=== PATIENT | female | born 1960 | race Caucasian/White ===

== ENCOUNTER 2025-03-23 12:42 | Emergency (ER) | payer MEDICARE, MEDICAID ==
[~2025-03-23] VITALS: Ht 149.9 cm; Wt 46.0 kg
[2025-03-23 12:50] VITALS: BP 124/70; PULSE 83; RESP 18; O2SAT 98
--- NOTE | 2025-03-23 14:31 | RADIOLOGY REPORT ---
EXAM: DI TOE(S) CLINICAL INDICATION: toe pain TECHNIQUE: DI TOE(S) Comparison: None FINDINGS/IMPRESSION: Possible fracture of the base of the 2nd middle phalanx. Amputation 3rd proximal phalanx.
--- NOTE | 2025-03-23 15:18 | Physician Documentation ---
History of Present Illness ~ Chief Complaint: Foot pain Stated Complaint: SWOLLEN TOE Time Seen by MD: 14:24 Primary Medical Doctor: nancy PHILLIPS 65-year-old female that presents to the emergency department for evaluation of her right foot 2nd digit. She reports that she has had a wound on that foot the continues to worsen over the last week. Also reports that she has a broken pelvis as she was seen at another hospital for approximately a week ago and sent to a rehab facility for treatment and physical therapy. Patient reports her pain is significant in her right foot and that her pelvis pain has increased from the initial injury. Patient reports that she takes [place] and has taken them for years. She reports that they [place] is not covering her pain at this time. Tetanus witin 5 years: No Medication Reconciliation Allergies: Coded Allergies: No Known Allergies (Unverified , 03/23/25) Scheduled Cephalexin*Monohydrate* (Keflex*), 1 CAP PO QID Review of Systems ROS As stated above in the HPI, otherwise all systems are reviewed and negative. Physical Exam Vital Signs: Temperature: 98.5, Source: Temporal, Heart Rate: 83, Respiratory Rate: 18, BP: 124/70, Pulse Oximetry: 98, Weight: 46.000 Oxygen Flow Rate: 0 Physical Exam VITALS: Reviewed and as above. GENERAL: Alert, no apparent distress, sleepy HEENT: Normocephalic, atraumatic, PERRL, EOMI, dry mucosa, no erythema RESPIRATORY: Lungs clear, normal breath sounds, no respiratory distress. CHEST: No accessory muscle use, no retractions CV: Regular rate, rhythm, no edema, no murmur, No: JVD GI: Soft, non-tender, bowels sounds present, no rebound, guarding, or rigidity BACK: No CVA tenderness, or swelling MUSCULOSKELETAL No deformities, no edema. Pain to the right hip consistent with previous pelvic injury. SKIN: Warm and dry, no rash, to the 2nd digit of the right foot. NEURO: Oriented x4, No motor or sensory deficit PSYCH: Normal mood and affect, no agitation Progress Results/Orders Results/Orders Orders - LAWRENCE REESE GASTROENTEROLOGY NURSE PRACTITIONER Pelvis,Limited 1-2 Views (03/23/25 15:08) Vl Venous (03/23/25 16:10) Vl Arterial (03/23/25 16:10) Completed Orders - LAWRENCE REESE GASTROENTEROLOGY NURSE PRACTITIONER Cbc/Diff (03/23/25 15:06) CMP (03/23/25 15:06) LA (03/23/25 15:06) Pelvis,Limited 1-2 Views (03/23/25 15:08) Acetaminophen 325mg Tablet (Tylenol Tabl (03/23/25 15:20) Vl Venous (03/23/25 16:10) Vl Arterial (03/23/25 16:10) Medications Received in ER Medications (Trade) Dose Ordered Sig/Sharyn Route PRN Reason Start Time Stop Time Status Last Admin Dose Admin (Tylenol tablet) 650 mg ONCE ONCE PO 03/23/25 15:20 03/23/25 15:21 DC 03/23/25 16:00 650 MG Vital Signs 03/23/25 12:50 Temp 98.5 Pulse 83 Resp 18 B/P (MAP) 124/70 Pulse Ox 98 O2 Flow Rate 0 Laboratory Tests Test 03/23/25 15:48 03/23/25 16:17 Lactic Acid Level 1.0 White Blood Count 7.8 Red Blood Count 3.92 L Hemoglobin 9.2 L Hematocrit 29.6 L Mean Corpuscular Volume 75.5 L Mean Corpuscular Hemoglobin 23.4 L Mean Corpuscular Hemoglobin Concent 31.0 L Red Cell Distribution Width 24.0 H Platelet Count 284 Mean Platelet Volume 8.2 Neutrophils (%) (Auto) 70.5 Lymphocytes (%) (Auto) 18.5 L Monocytes (%) (Auto) 7.1 Eosinophils (%) (Auto) 3.2 Basophils (%) (Auto) 0.7 Neutrophils # (Auto) 5.5 Lymphocytes # (Auto) 1.5 Monocytes # (Auto) 0.6 Eosinophils # (Auto) 0.2 Basophils # (Auto) 0.1 CBC Comment Platelet Estimate Normal Red Blood Cell Morphology Perf Polychromasia Few Hypochromasia 1+ Basophilic Stippling Anisocytosis 3+ Microcytosis 1+ Tear Drop Cells 1+ Elliptocytes Few Schistocytes Few Sodium Level 132 L Potassium Level 3.3 L Chloride Level 101 Carbon Dioxide Level 22.3 L Anion Gap 9 Blood Urea Nitrogen 21 H Creatinine 0.69 Estimated GFR/1.73 m2 85 BUN/Creatinine Ratio 30.4 H Glucose Level 96 Calcium Level 8.4 L Total Bilirubin 0.2 Aspartate Amino Transf (AST/SGOT) 19 Alanine Aminotransferase (ALT/SGPT) 18 Alkaline Phosphatase 140 H Total Protein 6.8 Albumin 3.1 L Globulin 3.7 Albumin/Globulin Ratio 0.8 L Chemistry Comments Medical Decision Making Findings 1744: Patient reports that pain has improved. The Pt was found to have a closed, stable mildly displaced pelvic fracture on XR one week ago at another facility. Patient was discharged at that time to a rehabilitation facility. She presented from that facility today with a pain in her right foot secondary to wound on the 2nd digit and pain in her pelvis. The Pt is otherwise well appearing, hemodynamically stable, and shows no evidence of neurovascular injury or compartment syndrome. Patient underwent radiologic imaging end a full workup with diagnostic. Patient's pelvic fracture is stable. There is a suspicion that there may be a fracture to the 2nd digit of her right foot. The toe will be evangelina-taped and placed in a boot for stabilization. The patient will follow up with ortho and her PMD. Patient will return to the emergency department if there is any worsening of her current symptoms or any additional concerning symptoms that we discussed here today. This patient presents with initial presentation of local erythema this evening with a wound on the 2nd digit of her right foot. Negative for systemic concerns at this time as workup is negative for elevated white blood cell count. No lymphangitic spread visible and no fluid pockets or fluctuance concerning for abscess noted. Low concern for osteomyelitis or DVT. No immune compromise, bullae, pain out of proportion, or rapid progression concerning for necrotizing fasciitis. Patient to be discharged home with keflex with follow up with their PMD. General Diff Dx:Considerations: Include: Abrasion, Contusion, Fracture, Hematoma, Laceration, Malunion, Neurovascular injury, Open fracture, Sprain, Ulcer, Other Toe Diff Dx:Considerations: Include: Abrasion, Cellulitis, Contusion, Dislocati on, Felon, Fracture, Hematoma, Laceration, Neurovascular injury, Open fracture, Paronychia, Subungual hematoma, Other Departure Disposition: 01 HOME / SELF CARE / HOMELESS Impression: Primary Impression: Toe fracture, right Additional Impressions: Pelvic pain Open toe wound Additional Instructions: The Pt was found to have a closed, mildly displaced pelvic fracture on XR one w [place] ago at another facility. Patient was discharged at that time to a rehabilitation facility. She presented from that facility today with a pain in her right foot secondary to wound on the 2nd digit and pain in her pelvis. The Pt is otherwise well appearing, hemodynamically stable, and shows no evidence of neurovascular injury or compartment syndrome. Patient underwent radiologic imaging end a full workup with diagnostic. Patient's pelvic fracture is stable. There is a suspicion that there may be a fracture to the 2nd digit of her right foot. The toe will be evangelina-taped and placed in a boot for stabilization. The patient will follow up with ortho and her PMD. Patient will return to the emergency department if there is any worsening of her current symptoms or any additional concerning symptoms that we discussed here today. This patient presents with initial presentation of local erythema this evening with a wound on the 2nd digit of her right foot. Negative for systemic concerns at this time as workup is negative for elevated white blood cell count. No lymphangitic spread visible and no fluid pockets or fluctuance concerning for abscess noted. Low concern for osteomyelitis or DVT. No immune compromise, bullae, pain out of proportion, or rapid progression concerning for necrotizing fasciitis. Patient to be discharged home with keflex with follow up with their PMD. He states her antibiotics until your completed. He is follow up with your primary care provider. Return to the emergency department if you have any worsening with the symptoms or additional pain or any of the other concerning symptoms that we discussed here today. Patient understands and agrees with the discharge plan. Referrals: NO PRIMARY CARE PROVIDER (PCP) Prescriptions Hydrocodone Bit/Acetaminophen 5/325 MG ([place] 5/325 MG) 5 Mg/325 Mg Tablet 1 TAB PO Q6H PRN for pain, #14 TAB Prov: LAWRENCE REESE 03/23/25 Cephalexin*Monohydrate* (Keflex*) 500 Mg Capsule 1 CAP PO QID for 7 Days, #28 CAP Prov: LAWRENCE ERESE 03/23/25 Education Educated: Patient Educated regarding: diagnosis, treatment, need for follow up Signature Scribe Signature: A Attestation: Scribed for Lawrence Reese by BRIAN Harman . 03/23/25 18:08 LAWRENCE REESE Mar 23, 2025 15:18
--- NOTE | 2025-03-23 15:40 | RADIOLOGY REPORT ---
CLINICAL INDICATION: Increased pain post fracture TECHNIQUE: DI PELVIS,LIMITED 1-2 VIEWS Comparison: None FINDINGS/IMPRESSION: : Right hip arthroplasty. Minimally displaced fracture of the left inferior pubic ramus. Moderate to large volume colonic stool.
[2025-03-23 16:27] LABS: MEAN PLATELET VOLUME 8.2 FL (7.4-10.4); RED CELL DISTRIBUTION WIDTH 24.0 % (11.5-14.5)
[2025-03-23 16:48] LABS: CREATININE 0.69 MG/DL (0.40-0.90); TOTAL CARBON DIOXIDE 22.3 MMOL/L (24-32); eCRCL 54 ML/MIN; eGFR 85 ML/MIN
[2025-03-23 17:03] LABS: ELLIPTOCYTES FEW; PLATELET ESTIMATE NORMAL
[2025-03-23] MEDS ORDERED: CEPH-585 PO (18:04)
[2025-03-23] MEDS ORDERED: HYDR-3965 PO (18:11)
--- NOTE | 2025-03-23 18:28 | VASCULAR REPORT ---
RIGHT LOWER EXTREMITY ARTERIAL VASCULAR ULTRASOUND CLINICAL HISTORY: Right lower extremity pain. Nonhealing foot wound. COMPARISON: None TECHNIQUE: Real-time high-resolution grayscale and color Doppler flow imaging with pulsed duplex sono graphy is performed in the lower extremity arterial system with imaging of the femoral-popliteal syst em and interrogation of the dorsalis pedis and posterior tibial arteries at the level of the ankle. FINDINGS: Imaging of the right leg demonstrates minimal scattered atherosclerotic plaquing. No hemodynamically significant stenosis. Peak systolic flow velocities and wave forms are satisfactory throughout the i nterrogated segments. IMPRESSION: No hemodynamically significant stenoses or occlusions identified.
--- NOTE | 2025-03-23 18:33 | VASCULAR REPORT ---
RIGHT LOWER EXTREMITY VENOUS DOPPLER ULTRASOUND CLINICAL HISTORY: Right lower extremity pain and swelling. COMPARISON: None TECHNIQUE: Grayscale ultrasound with compression, Color Doppler flow and duplex spectral Doppler son ography of the right lower extremity femoral popliteal deep venous system is performed. FINDINGS: Right common femoral vein: Negative. Right greater saphenous vein: Negative. Right deep femoral vein: Negative. Right femoral vein: Negative. Right popliteal vein: Negative. Other: Imaged posterior tibial and peroneal veins demonstrate color flow. IMPRESSION: No sonographic evidence of deep venous thrombosis in the right lower extremity at this time.
[2025-03-23 20:41] VITALS: TEMP 98.5
== END 2025-03-23 20:44 | disposition home or self-care (01) ==
LOC: ER 12:43
DX: S92.591A Other fracture of right lesser toe(s), initial encounter for closed fracture (principal); R10.2 Pelvic and perineal pain; X58.XXXA Exposure to other specified factors, initial encounter; Y93.89 Activity, other specified; Y92.89 Other specified places as the place of occurrence of the external cause; Y99.8 Other external cause status
CPT/HCPCS: 36415; 72170; 73660; 80053; 83605; 85008; 85025; 93926; 93971; 99284; A6222